=== PATIENT | male | born 1945 | race Two or more races ===

== ENCOUNTER 2018-02-17 14:37 | Emergency (ER) | payer OTHER ==
[~2018-02-17] VITALS: Ht 172.7 cm; Wt 108.9 kg
[~2018-02-17 14:37] MED LIST: COUMADIN4 MG; COUMADIN4 MG PO; CRESTOR10 MG; FERREX 150 FOR1 EACH PO; GLUCOPHAGE XR500 MG; LEVAQUIN750 MG PO; NEURONTIN300 MG; NORVASC5 MG; ROBITUSSIN COU118 M9 PO; SYNTHROID112 MCG; SYNTHROID75 MCG
[2018-02-17] MEDS ORDERED: SYNTHROID125 MCG PO (14:47)
[2018-02-18] MEDS ORDERED: LASIX20 MG PO (00:50)
[2018-02-18] MEDS ORDERED: ZITHROMAX500 MG PO (00:50)
== END 2018-02-18 01:07 | disposition home or self-care (01) ==
LOC: ER 14:37
DX: J06.9 Acute upper respiratory infection, unspecified (principal); R06.02 Shortness of breath

== ENCOUNTER 2018-02-21 01:45 | Inpatient (IN) | payer OTHER ==
[~2018-02-21] VITALS: Ht 180.3 cm; Wt 108.9 kg
[~2018-02-21 01:45] MED LIST changes: -CRESTOR10 MG; +CRESTOR10 MG PO; +LASIX20 MG PO; -NORVASC5 MG; +NORVASC5 MG PO; +SYNTHROID125 MCG PO; +ZITHROMAX500 MG PO
[2018-03-01] MEDS ORDERED: LEVAQUIN750 MG PO ×2 (15:19→16:05)
[2018-03-01] MEDS ORDERED: GUAIFENESI100 MG/52 PO (16:01)
[2018-03-01] MEDS ORDERED: XOPENEX0.63 MG/3 IH (16:01)
[2018-03-01] MEDS ORDERED: FUROSEMIDE20 MG PO (16:01)
[2018-03-01] MEDS ORDERED: ISOSORBIDE MONO30 MG PO (16:01)
[2018-03-01] MEDS ORDERED: NORVASC5 MG PO (16:01)
[2018-03-01] MEDS ORDERED: LEVOTHYROXINE125 MCG PO (16:01)
== END 2018-03-01 16:52 | disposition home or self-care (01) | DRG 291 ==
LOC: ER 01:45 → ICU 17:23 → MEDI 02-23 13:36
PROC: 3E0F7GC Introduction of Other Therapeutic Substance into Respiratory Tract, Via Natural or Artificial Opening (ICD-10-PCS; principal; 2018-02-21)
PROC: 4A033R1 Measurement of Arterial Saturation, Peripheral, Percutaneous Approach (ICD-10-PCS; 2018-02-21)
PROC: B246ZZZ Ultrasonography of Right and Left Heart (ICD-10-PCS; 2018-02-21)
PROC: BW41ZZZ Ultrasonography of Abdomen and Pelvis (ICD-10-PCS; 2018-02-21)
PROC: 4A12X4Z Monitoring of Cardiac Electrical Activity, External Approach (ICD-10-PCS; 2018-02-23)
PROC: 30233N1 Transfusion of Nonautologous Red Blood Cells into Peripheral Vein, Percutaneous Approach (ICD-10-PCS; 2018-02-24)
DX: I11.0 Hypertensive heart disease with heart failure (principal); I50.33 Acute on chronic diastolic (congestive) heart failure; J18.9 Pneumonia, unspecified organism; C90.00 Multiple myeloma not having achieved remission; E66.8 Other obesity; I25.10 Atherosclerotic heart disease of native coronary artery without angina pectoris; H40.89 Other specified glaucoma; D64.89 Other specified anemias; R42 Dizziness and giddiness; R09.02 Hypoxemia; E11.9 Type 2 diabetes mellitus without complications; R31.0 Gross hematuria; R63.0 Anorexia; K59.09 Other constipation; R07.89 Other chest pain

== ENCOUNTER 2022-06-30 17:19 | Inpatient (IN) | payer OTHER ==
[~2022-06-30] VITALS: Ht 172.7 cm; Wt 102.5 kg
[~2022-06-30 17:19] MED LIST changes: +FUROSEMIDE20 MG PO; +GUAIFENESI100 MG/52 PO; +ISOSORBIDE MONO30 MG PO; +LEVOTHYROXINE125 MCG PO; +XOPENEX0.63 MG/3 IH
[2022-07-03] MEDS ORDERED: INTEGRA F CAPS1 EACH PO (17:28)
== END 2022-07-03 19:40 | disposition home or self-care (01) | DRG 842 ==
LOC: MEDJ 17:19
PROVIDERS: ADMIT Internal Medicine Cardiovascular Disease; ATTEND Internal Medicine Cardiovascular Disease
PROC: 30233N1 Transfusion of Nonautologous Red Blood Cells into Peripheral Vein, Percutaneous Approach (ICD-10-PCS; principal; 2022-07-01)
DX: C90.00 Multiple myeloma not having achieved remission (principal); D63.0 Anemia in neoplastic disease; I11.0 Hypertensive heart disease with heart failure; I25.10 Atherosclerotic heart disease of native coronary artery without angina pectoris; I50.9 Heart failure, unspecified; H40.9 Unspecified glaucoma; E03.9 Hypothyroidism, unspecified; E11.9 Type 2 diabetes mellitus without complications; E66.09 Other obesity due to excess calories